=== PATIENT | male | born 1995 | race Caucasian/White ===

== ENCOUNTER → 2021-07-09 | Outpatient (CLI) | payer OTHER ==
[~2021-07-09] MED LIST: ASPIRIN CHEWABL81 MG PO; BENTYL 20MG TAB20 MG PO; FLOMAX 0.4 MG0.4 MG PO; NORCO 7.5-3251 EACH PO; PERCOCET 5-3251 EACH PO; ZOFRAN 4 MG TAB4 MG PO; ZOFRAN ODT 4 MG4 MG PO
[2021-07-11 16:14] LABS: ENDOMYSIAL ANTIBODY IGA Negative (Negative); IMMUNOGLOBULIN A, QN, SERUM 206 mg/dL (90-386); T-TRANSGLUTAMINASE (TTG) IGA <2 U/mL (0-3)
== END ==
LOC: LAB 16:40
PROVIDERS: Internal Medicine Gastroenterology
DX: R10.84 Generalized abdominal pain (principal)
CPT/HCPCS: 36415; 82784